=== PATIENT | male | born 1985 ===

== ENCOUNTER 2020-02-26 14:37 | Outpatient (CLI) | payer SELFPAY | END 2020-02-26 14:38 | disposition home or self-care (01) | LOC: SPT 14:38 | PROVIDERS: Visit Provider Podiatrist Foot & Ankle Surgery | DX: Z46.89 Encounter for fitting and adjustment of other specified devices (principal); S92.002D Unspecified fracture of left calcaneus, subsequent encounter for fracture with routine healing; X58.XXXD Exposure to other specified factors, subsequent encounter | CPT/HCPCS: L4361 ==

== ENCOUNTER 2020-02-26 16:18 | Outpatient (CLI) | payer SELFPAY ==
--- NOTE | 2020-02-26 15:30 | CT_ITS ---
WS: [id number] NONCONTRAST CT LEFT FOOT WITH CORONAL AND SAGITTAL REFORMATTED IMAGES. TECHNIQUE: Noncontrast CT left foot with coronal and sagittal reformatted images. CLINICAL INFORMATION: left foot injury COMPARISON: None. DLP: 295.[address] scans at [facility] use at least one of these dose optimization techniques: automat ed exposure control; mA and/or kV adjustment per patient size (includes targeted exams where dose is matched to clinical indication); or iterative reconstruction. FINDINGS: Again seen is the comminuted fracture involving the midbody calcaneus. This extends to the posterior talar facet and sustentaculum leonor. Anterior process of the calcaneus is normal. Anterior neck of the talus is normal. Mild dorsal irregularity along the calcaneal fracture with slight widening measurin g 4 mm. Additional nondisplaced fracture with a transverse orientation involving the dorsal calcaneus near the Achilles insertion. Dorsal calcaneal enthesophyte. Normal navicular. Normal tarsal bones. Normal metatarsals. Plantar soft tissue edema. CT/CT foot LT wo con* [id number] IMPRESSION: 1. Oblique comminuted fracture involving the body of the calcaneus extending t o the posterior talar facet and sustentaculum leonor. 2. Mild dorsal plantar widening of the fracture measuring 4 mm with slight irr egularity. 3. Additional nondisplaced fracture involving the dorsal calcaneus adjacent to the Achilles insertion. 4. Tiny dorsal calcaneal enthesophyte. 5. Plantar hindfoot soft tissue edema.
== END 2020-02-26 16:19 | disposition home or self-care (01) ==
LOC: RADWPI 16:21 → RAD 16:22
PROVIDERS: PCP Family Medicine; Visit Provider Podiatrist Foot & Ankle Surgery
DX: S99.922A Unspecified injury of left foot, initial encounter (principal); S92.012A Displaced fracture of body of left calcaneus, initial encounter for closed fracture; R60.0 Localized edema; X58.XXXA Exposure to other specified factors, initial encounter
CPT/HCPCS: 73700

== ENCOUNTER → 2020-03-09 08:41 | Outpatient (BNVA) | payer SELFPAY | PROVIDERS: PCP Family Medicine; Visit Provider Podiatrist Foot & Ankle Surgery | DX: Z47.89 Encounter for other orthopedic aftercare (principal); S92.042D Displaced other fracture of tuberosity of left calcaneus, subsequent encounter for fracture with routine healing; W11.XXXD Fall on and from ladder, subsequent encounter | CPT/HCPCS: 73650 ==